=== PATIENT | male | born 1955 | race Caucasian/White ===

== ENCOUNTER 2018-12-19 08:59 | Inpatient (IN) | payer MEDICARE ==
[~2018-12-19] VITALS: Ht 182.9 cm; Wt 130.6 kg
[2018-12-19] VITALS (17 sets, daily range): BP systolic 107–170; BP diastolic 51–97
--- NOTE | ~2018-12-19 | EEG ---
[address] [address] EEG STUDY REPORT Name: CORTEZ EVANS Room: [address] IN M.R.#: [id number] Admission: 12/19/18 Attend Phys: Jay Unger MD Discharge: Date of : 55 Report #: [id number] THIS REPORT FOR: //name// CC: Jus Unger MD DATE OF SERVICE: 12/20/2018 HISTORY: The patient is a 63-year-old male with possible seizure and altered mental status. An EEG is requested for further evaluation. DESCRIPTION: The record consists of low to moderate amplitude 4-5 Hz activity, which is diffuse and bilaterally symmetrical. EMG artifact was noted during the recording. Photic stimulation was not activating. No focal abnormalities or epileptiform discharges are noted. IMPRESSION: This is an abnormal adult record because of [id number]-[id number]-[id number] slowing of the posterior dominant rhythm. This is consistent with diffuse cerebral dysfunction and can be seen if the patient is very drowsy or due to a medication effect. No focal abnormalities or epileptiform discharges were noted. By: [id number] Garrison DO /nt
--- NOTE | 2018-12-19 09:15 | NUR ---
PT TAKEN DIRECTLY TO CT PER DR. BAIRES REQUEST ON EMS CART.
[2018-12-19 09:25] LABS: NUCLEATED RBCS 0 /100WBC
[2018-12-19 09:28] LABS: HEMATOCRIT 45.4 % (42.0-52.0); HEMOGLOBIN 15.4 gm/dL (14.0-18.0); MCH 32.1 pg (26.0-34.0); MCHC 33.9 g/dL (28.0-37.0); MCV 94.6 fL (80.0-100.0); MPV 8.2 fl. (7.2-11.1); PLATELET COUNT* 262 thou/uL (150-400); RDW-CV 13.3 % (10.5-14.5); WBC 17.1 thou/uL (4.0-11.0)
[2018-12-19 09:32] LABS: APTT 28.5 Seconds (25.0-31.3); CALCIUM 9.4 mg/dL (8.5-10.1); CREATININE 1.9 mg/dL (0.6-1.3); INR 1.1; POTASSIUM 4.5 mmol/L (3.5-5.1); PROTIME 11.2 Seconds (9.20-11.50)
[2018-12-19] MEDS ORDERED: HUMALOG100 UNIT/1 SUBQ (09:40)
[2018-12-19] MEDS ORDERED: LANTUS100 UNIT/M SUBQ (09:40)
[2018-12-19 09:47] LABS: ALBUMIN 3.7 g/dL (3.4-5.0); CK-MB MASS 19.1 ng/mL (<0.5-3.6); TOTAL BILIRUBIN 1.5 mg/dL (<0.1-1.0); TOTAL PROTEIN 7.8 g/dL (6.4-8.2); TROPONIN-I LEVEL 0.08 ng/mL (<0.06)
[2018-12-19 09:59] LABS: BE -3.5 mmol/L (-2 to +3); PCO2 38.7 mmHg (35.0-45.0); pH 7.362 (7.340-7.450)
[2018-12-19 10:08] LABS: PO2 329.7 mmHg (75.0-100.0)
[2018-12-19 10:22] LABS: ABSOLUTE EOSINOPHILS 0.2 thou/uL (0.0-0.7); ABSOLUTE LYMPHOCYTES 1.7 thou/uL (0.8-5.3); ABSOLUTE NEUTROPHILS 14.2 thou/uL (1.6-8.1); PLATELET ESTIMATE ADEQUATE
[2018-12-19 10:54] LABS: URINE BILIRUBIN NEGATIVE (Negative); URINE BLOOD 3+ (Negative); URINE CLARITY CLEAR; URINE COLOR YELLOW; URINE GLUCOSE-RANDOM 3+ (Negative); URINE KETONES 1+ (Negative); URINE LEUKOCYTES-REFLEX NEGATIVE (Negative); URINE NITRITE-REFLEX NEGATIVE (Negative); URINE PROTEIN 2+ (Negative); URINE UROBILINOGEN 0.2 E.U./dl (0.2-1.0)
[2018-12-19 11:01] LABS: AMP/METHAMP Negative (Negative); BARBITURATES Negative (Negative); BENZODIAZEPINES POSITIVE (Negative); COCAINE Negative (Negative); METHADONE Negative (Negative); OPIATES Negative (Negative); PCP Negative (Negative); THC Negative (Negative)
[2018-12-19 11:01] LABS: ACETAMINOPHEN < 2 ug/mL (10-30); ALCOHOL < 10 mg/dL (<10); SALICYLATE < 2.8 mg/dL (2.8-20.0)
[2018-12-19 11:06] LABS: BACTERIA-REFLEX None Seen /HPF (None Seen); CASTS None Seen /LPF (None Seen); CRYSTALS None Seen /LPF (None Seen); MUCUS None Seen strn/LPF (None Seen); SQUAMOUS NONE SEEN /LPF (0-3); URINE RBC 0-2 Rare /HPF (0-2); URINE WBC-REFLEX None Seen /HPF (0-5)
--- NOTE | 2018-12-19 11:32 | NUR ---
DR. BAIRES SPOKE W/ PT'S SISTER WHO INQUIRES ABOUT STATUS. SISTER DOES NOT WANT TO VISIT W/ PT BUT IS GOING TO UPDATE PT'S MOTHER.
--- NOTE | 2018-12-19 14:50 | EKG ---
[place] [address] ELECTROCARDIOGRAM REPORT Name: CORTEZ EVANS Room: [address] ADM IN M.R.#: [id number] Admission: 12/19/18 Attend Phys: Jay Unger MD Discharge: Date of : 55 Report #: [id number] THIS REPORT FOR: //name// [facility] ED Test Date: 2018-12-19 Test Time: 10:01:22 Pat Name: CORTEZ EVANS Department: Room: [facility] Gender: M Nut Blanker Operator: Alejandro CASTREJON : 1955 Requested By: Rupert Pittman Order Number: [id number] MD: Tino Carrington Measurements Intervals [place] Rate: 77 P: 43 VT: 195 QRS: -23 QRSD: 96 T: 26 QT: 400 QTc: 453 Interpretive Statements Sinus arrhythmia Borderline left axis deviation No previous ECG available for comparison Electronically Signed On 12-19-2018 14:50:39 CDT by Tino Carrington [email or web address] <ELECTRONICALLY SIGNED> By: Tino Carrington MD, [facility] 12/19/18 1450 1001 00 Tino Carrington MD, FACC /EPI
[2018-12-19] MEDS ORDERED: CENTRUM SILVER1 EAC4 PO (15:02)
[2018-12-19] MEDS ORDERED: LIPITOR 20 MG T20 M1 PO (15:03)
[2018-12-19] MEDS ORDERED: LEVOTHYROXINE100 MCG PO (15:03)
[2018-12-19] MEDS ORDERED: AMLODIPINE BESYL5 M1 PO (15:03)
[2018-12-19] MEDS ORDERED: LISINOPRIL20 MG PO (15:04)
[2018-12-19] MEDS ORDERED: LASIX 20 MG TAB20 MG PO (15:04)
--- NOTE | 2018-12-19 16:06 | 2DMMODE ---
[place] [address] 2 D/M-MODE ECHOCARDIOGRAM Name: CORTEZ EVANS Room: 006[facility] IN [facility]#: [id number] Admission: 12/19/18 Attend Phys: Jay Unger MD Discharge: Date of : 55 Date of Service: 12/19/18 1605 Report #: [id number] THIS REPORT FOR: //name// APPROVED REPORT Study performed: 12/19/2018 14:12:24 EXAM: Comprehensive 2D, Doppler, and color-flow Echocardiogram Patient Location: In-Patient Room #: 0063 Status: routine BSA: 2.47 HR: 79 bpm BP: 131/65 mmHg Rhythm: NSR Other Information Study Quality: Good Indications Congestive Heart Failure 2D Dimensions IVSd: 12.01 (7-11mm) LVOT Diam: 22.99 (18-24mm) LVDd: 48.73 mm PWd: 8.96 (7-11mm) Ascending Ao: 35.60 (22-36mm) LVDs: 25.73 (25-40mm) Aortic Root: 32.23 mm Volumes Left Atrial Volume (Systole) LA ESV Index: 28.20 mL/m2 Aortic Valve AoV Peak Darinel.: 2.07 m/s AO Peak Gr.: 17.07 mmHg LVOT Max P.55 mmHg AO Mean Gr.: 8.96 mmHg LVOT Mean P.37 mmHg LVOT Max V: 1.54 m/s AO V2 VTI: 39.24 cm LVOT Mean V: 0.95 m/s JAYLIN (VTI): 3.62 cm2 LVOT V1 VTI: 34.18 cm Mitral Valve E/A Ratio: 0.75 MV Decel. Time: 277.45 ms MV E Max Darinel.: 0.85 m/[place] [address] 2 D/M-MODE ECHOCARDIOGRAM Name: CORTEZ EVANS Room: [address] IN .R.#: [id number] Admission: 12/19/18 Attend Phys: Jay Unger MD Discharge: Date of : 55 Date of Service: 12/19/18 1605 Report #: [id number] PHT: 80.46 ms MVA (PHT): 2.73 cm2 TDI E/Lateral E': 6.54 E/Medial E': 5.31 Medial E' Darinel.: 0.16 m/s Lateral E' Darinel.: 0.13 m/s Pulmonary Valve PV Peak Darinel.: 1.40 m/s PV Peak Gr.: 7.83 mmHg Left Ventricle The left ventricle is normal size. There is normal LV segmental wall motion. There is normal left ventricular wall thickness. Left ventricular systolic function is normal. LVEF is 65-70%. Grade I - abnormal relaxation pattern. Right Ventricle The right ventricle is normal size. The right ventricular systolic function is normal. Atria The left atrium size is normal. The right atrium size is normal. Aortic Valve The aortic valve is normal in structure. No aortic regurgitation is present. There is no aortic valvular stenosis. Mitral Valve The mitral valve is normal in structure. Trace mitral regurgitation. No evidence of mitral valve stenosis. Tricuspid Valve The tricuspid valve is normal in structure. Trace tricuspid regurgitation. Pulmonic Valve The pulmonary valve is normal in structure. There is no pulmonic valvular regurgitation. Great Vessels The aortic root is normal in size. IVC is normal in size and collapses >50% with inspiration[place] [address] 2 D/M-MODE ECHOCARDIOGRAM Name: CORTEZ EVANS Room: [address] IN [facility]#: [id number] Admission: 12/19/18 Attend Phys: Jay Unger MD Discharge: Date of : 55 Date of Service: 12/19/18 1605 Report #: [id number] There is no pericardial effusion. <Conclusion> The left ventricle is normal size. There is normal left ventricular wall thickness. Left ventricular systolic function is normal. LVEF is 65-70%. Grade I - abnormal relaxation pattern. Trace mitral regurgitation. Trace tricuspid regurgitation. IVC is normal in size and collapses >50% with inspiration. <ELECTRONICALLY SIGNED> By: Tino Carrington MD, FACC 12/19/18 1605 04 04 Tino Carrington MD, FAC /INF
--- NOTE | 2018-12-19 18:03 | NUR ---
PATIENT REMAINS ON VENTILATOR AND IN RESTRAINTS. MAKES SOME PURPOSEFUL MOVEMENT. SPOKE WITH [facility] NURSE NAMED LIVIA THIS AFTERNOON AND SHE STATED THAT PATIENT HAS BEEN UNCHARACTERISTICALLY NICE TO PEOPLE AROUND THE [facility] THIS LAST WEEK AND HAS BEEN SNAPPY WITH HIS MOTHER ALL OF A SUDDEN. REFUSED FOR MOM TO CHECK ON HIM LAST NIGHT WHICH SHE NORMALLY DOES. SUGAR WAS CHECKED BY HIM LAST NIGHT AT 1800 AND IT WAS 66, PATIENT HAD GIVEN HIMSELF INSULIN (UNKNOWN AMOUNT) AT 1600 FOR DINNER. PATIENT HAS MADE STATEMENTS IN THE PAST TO LIVIA THAT HE JUST WANTS TO AND DOESNT WANT TO LIVE ANYMORE. POSSIBLE SI ATTEMPT. ONCE PATIENT IS EXTUABTED PER DR VALERA HE WILL NEED A SITTER AND SI PRECAUTIONS. SUGARS ARE HIGH SINCE HOSPITAL STAY. INSULIN GTT STARTED. MEDICAL HISTORY FAXED FROM [facility] AND DR RIOS IS FAXING OVER SOME HISTORY FROM [facility] ON PATIENT HISTORY ALSO. BED IN LOWEST POSTION, MANAGER FLEET IN PLACE. HIGH FALL PRECAUTIONS IN PLACE.
[2018-12-20] VITALS (23 sets, daily range): BP systolic 134–186; BP diastolic 42–74
--- NOTE | 2018-12-20 02:05 | NUR ---
FSBS X2 <60, INSULIN GTT STOPPED, SERUM GLUCOSE STAT ORDERED, SERUM GLUCOSE FROM LAB RESULTED AT 26, ONE AMP-D50 GIVEN IVP, WILL RECHECK FSBS 15MIN POST AMP D50 IVP ADMINISTRATION.
[2018-12-20 05:46] LABS: BE -1.2 mmol/L (-2 to +3); PCO2 35.4 mmHg (35.0-45.0); pH 7.422 (7.340-7.450)
[2018-12-20 05:49] LABS: PO2 163.5 mmHg (75.0-100.0)
[2018-12-20 05:57] LABS: ABSOLUTE BASOPHILS 0.1 thou/uL (0.0-0.2); ABSOLUTE LYMPHOCYTES 1.5 thou/uL (0.8-5.3); ABSOLUTE MONOCYTES 1.8 thou/uL (0.0-1.2); ABSOLUTE NEUTROPHILS 11.1 thou/uL (1.6-8.1); BASOPHILS 0.5 %; EOSINOPHILS 0.3 %; HEMATOCRIT 36.7 % (42.0-52.0); LYMPHOCYTES 10.3 %; MCH 31.9 pg (26.0-34.0); MCHC 33.9 g/dL (28.0-37.0); MCV 94.1 fL (80.0-100.0); MONOCYTES 12.1 %; NUCLEATED RBCS 0 /100WBC; PLATELET COUNT* 235 thou/uL (150-400); POLYS 76.8 %; RDW-CV 13.6 % (10.5-14.5); WBC 14.4 thou/uL (4.0-11.0)
[2018-12-20 06:02] LABS: HEMOGLOBIN 12.4 gm/dL (14.0-18.0)
[2018-12-20 06:12] LABS: ALBUMIN 2.7 g/dL (3.4-5.0); CALCIUM 8.2 mg/dL (8.5-10.1); MAGNESIUM 1.8 mg/dL (1.8-2.4); POTASSIUM 3.8 mmol/L (3.5-5.1); TOTAL BILIRUBIN 0.8 mg/dL (<0.1-1.0)
--- NOTE | 2018-12-20 08:26 | CON ---
[address] [address] CONSULTATION Name: NATHANCORTEZ CAIN Room: [address] IN M.R.#: [id number] Admission: 12/19/18 Attend Phys: Jay Unger MD Discharge: Date of : 55 Report #: [id number] THIS REPORT FOR: //name// CC: Jus Unger DATE OF SERVICE: 12/19/2018 REQUESTING PHYSICIAN: Dr. Unger. REASON FOR CONSULTATION: Respiratory failure, on ventilator. DISCUSSION: The patient is a 63-year-old man who was brought to the Emergency Department earlier this morning. He was found down and unresponsive. According to the ED notes, he was at some type of a nursing home or institution. Unknown how long he had been down. Had apparently vomited and loss of bowel and bladder. Reportedly, yesterday evening, blood sugars were down to 56. It is not clear how long he was down, but preliminary information suggests he had not been seen all night. We have no outside records on him at this time. He has had no prior hospital stays here at [place]. He was seen in the Emergency Department, noted to be unresponsive. He had been intubated in the field. He did have a central line placed in the Emergency Department. He had chest x-ray as well as imaging done of his head with no acute abnormalities noted there. He was transferred over to the Intensive Care Unit on the ventilator, we were asked to see him. For some additional sedation, propofol was started. At this time, other than the fact apparently, he is a known type 1 diabetic, we have no other history on him. We have no current list of active medications. Also unable to obtain any family history, social history or perform review of systems. PHYSICAL EXAMINATION: GENERAL APPEARANCE: A man who looks stated age, if not older. Intubated, has an orogastric tube in place. Does have low-dose propofol going at this time. Some withdrawing to noxious stimuli. Otherwise, he is not responsive. HEENT: Head is normocephalic. Sclerae nonicteric. Mucous membranes a little dry. NECK: Without adenopathy. Neck veins are a little full. No supraclavicular adenopathy. HEART: Regular. He is mildly tachycardic. Currently is in the mid 90s. No S3 is heard. LUNGS: Sounds are a little coarse. No wheezing is heard. No subcutaneous emphysema and excursion is equal. ABDOMEN: Protuberant. Does appear there is a very [place] [address] CONSULTATION Name: CORTEZ EVANS Room: [address] IN [facility].#: [id number] Admission: 12/19/18 Attend Phys: Jay Unger MD Discharge: Date of : 55 Report #: [id number] definite hepatosplenomegaly is appreciated. [place] catheter is in place. EXTREMITIES: He has no clubbing. Radial pulses are present, but diminished. Lower extremities, he has SCDs in place. SKIN: Warm and dry. NEUROLOGIC: He is currently not on any pressors. LABORATORY AND X-RAY FINDINGS: Chest x-ray shows endotracheal tube in position. It is just above the km. He has some infiltrate seen in the left base. A CT head done this morning was negative for acute findings. He does have a small sphenoid sinus air fluid level. Arterial blood gases done, pH was 7.36, pCO2 of 39, pO2 of 330, bicarbonate of 22 with saturation 98%. That was on 100% oxygen. He has since been turned down to 40%. White blood cell count 17,100, hemoglobin 15.4, hematocrit 45.4, platelets are normal. On his chemistry profile, BUN is 31, creatinine of 1.9, serum bicarbonate was 22, AST 92, total bilirubin 1.5, ALT 44. ProBNP 807. Lactic acid was 2.1, dropped to 1.7 on followup. Albumin 3.7. Blood sugar was greater than 300 when checked this morning. Total CPK was just over 3500. Drug screen was positive for benzodiazepines. MRSA screen is pending. Currently at this time, he is on propofol for sedation. Has p.r.n. fentanyl ordered as well. He had Protonix, antibiotics in the form of vancomycin, levofloxacin, metronidazole and cefepime. He did receive a dose of vancomycin in the Emergency Department. He is also on nebulizer treatments, DVT prophylaxis with Lovenox and aspirin. IMPRESSION: 1. Acute respiratory failure. Intubated to protect airway due to alterations in the level of consciousness. 2. Left lower lobe infiltrate. Some of this could be atelectasis. May also have aspirated. Currently, did vomit and had vomitus present on his face. Currently, is oxygenating well. 3. Diabetes mellitus, questionable control. It is also not clear how compliant he is. 4. Elevation in creatinine. It is not clear what his baseline is. 5. Mild metabolic acidosis. 6. Mild elevation of liver function tests. RECOMMENDATIONS: 1. Check sputum for Gram stain and C and S. 2. Continue antibiotics deescalate as culture results become available. 3. Minimize sedation as much as possible in order to assess underlying neurological status. [address] [place] [address] CONSULTATION Name: CORTEZ EVANS Room: [address] ADM IN M.R.#: [id number] Admission: 12/19/18 Attend Phys: Jay Unger MD Discharge: Date of : 55 Report #: [id number] 4. Follow up lab in the morning. 5. We will need additional records on him. <ELECTRONICALLY SIGNED> By: Linn Cabrera MD 12/20/18 0826 1425 [id number] Cabrera MD /nt
--- NOTE | 2018-12-20 15:44 | NUR ---
WAS ASKED TO CLARIFY PT'S DPOA/HOME SITUATION/ ONLY NUMBER IN CHART WAS FOR HIS SISTER ABHINAV STRONG [phone]. SPOKE WITH HER. SHE STATED PT LIVES IN IN[facility] L[facility]ING AT [facility] IN [place]. CONFIRMED THIS WITH MARCUS/NURSE THERE [phone]. SHE STATED THEY DID NOT HAVE A DPOA ON FILE AND THAT PT'S MOTHER/IRAIDA ALSO LIVES IN INDP LIVING THERE AND SHE AND PT CHECK ON EACH OTHER AND ARE 'CO-DEPENDENT'. PT IS DIABETIC AND PER MARCUS, CHECKS HIS BS FREQUENTLY AND KEEPS A LOG ON HIS COMPUTER. PT HAS LIVED THERE ABOUT A YEAR BUT SINCE SEP, HAS HAD WEEKLY OR BIWEEKLY CALLS TO EMS FOR BS ISSUES. SHE STATED PT DROPS TO '20S' AND THAT SHE FOUND HIM WITH [facility] YESTERDAY AM AND CALLED EMS. PER MARCUS, PT HAS ONLY BEEN IN INDP LIVING IN THEIR FACILITY, NO ASSISTED OR SNF. PER ABHINAV, PT HAS 2 DTRS AND MAN[facility] THAT SHE THINKS ARE DPOA. WOULD ONLY GIVE NUMBER OF MAN[facility]/MELISSA GAMING [phone]. CALLED AND LEFT VMAIL. PER RITARN, MELISSA CALLED BACK AND STATED HE WAS DPOA AND WOULD FAX COPY TO ICU. CM TO FOLLOW
[2018-12-20 17:45] LABS: TROPONIN-I LEVEL <0.06 ng/mL (<0.06)
--- NOTE | 2018-12-20 18:39 | NUR ---
PATIENT EXTUABTED THIS MORNING, TOLERATED WELL. ON ROOM AIR. SITTER IN PLACE. PSYCH EVALUATION TOMORROW FOR POSSIBLE SUICIDAL ATTEMPT AND ABILITY FOR PATIENT TO MAKE OWN DECISIONS. PATIENT REFUSES TO TAKE SYNTHROID PILL AND REFUSES TO EAT FOOD THIS EVENING. SWALLOW INTACT. NO PAIN, NAUSEA OR SHORTNESS OF AIR REPROTED. REFUSED BATH ALSO. BED IN LOWEST POSITON, CALL LIGHT IN REACH, GASKET MAKER IN PLACE.
[2018-12-21] VITALS (7 sets, daily range): BP systolic 134–169; BP diastolic 50–75
[2018-12-21 05:14] LABS: ABSOLUTE BASOPHILS 0.1 thou/uL (0.0-0.2); ABSOLUTE EOSINOPHILS 0.2 thou/uL (0.0-0.7); ABSOLUTE LYMPHOCYTES 1.6 thou/uL (0.8-5.3); ABSOLUTE MONOCYTES 0.9 thou/uL (0.0-1.2); ABSOLUTE NEUTROPHILS 6.5 thou/uL (1.6-8.1); BASOPHILS 0.7 %; HEMATOCRIT 35.2 % (42.0-52.0); LYMPHOCYTES 17.1 %; MCH 31.9 pg (26.0-34.0); MCV 93.8 fL (80.0-100.0); MONOCYTES 9.7 %; MPV 8.4 fl. (7.2-11.1); NUCLEATED RBCS 0 /100WBC; PLATELET COUNT* 235 thou/uL (150-400); POLYS 70.5 %; RBC 3.75 mil/uL (4.50-6.00); RDW-CV 13.5 % (10.5-14.5); WBC 9.2 thou/uL (4.0-11.0)
[2018-12-21 05:19] LABS: CALCIUM 8.1 mg/dL (8.5-10.1); CREATININE 1.7 mg/dL (0.6-1.3); POTASSIUM 3.5 mmol/L (3.5-5.1)
--- NOTE | 2018-12-21 16:10 | NUR ---
ASSESSMENT COMPLETE. PT ALERT AND ORIENTED TO SELF. PT HAD TELE PSYCH, SEE RESULTS IN CHART. CASE MANAGEMENT CONSULTED TO FIND PSYCH PLACEMENT. ACCUCHECK ACHS. PT IS ONE TO ONE. PULMONARY CHANGED ABX TO PO AND SIGNED OFF. PT UP IN CHAIR MOST OF THE DAY. VSS. CENTRAL LINE AND LEACH DC'D. SEE ASSESSMENT AND VITALS FOR OTHER DETAILS. CALL LIGHT WITHIN REACH, WILL CONTINUE PLAN OF CARE
--- NOTE | 2018-12-22 05:46 | NUR ---
Oriented x 2 and drowsy. He does answer questions but slowly. He has had a 1:1 sitter at bedside. He denies pain or nausea. He didn't void and said he couldn't so he was bladderscanned and it was greater than 900 mls. I did go in with a straight cath but he did decide he could stand up and void. He did void 400 mls in urinal and some that didn't make it in the urinal. It was assist x 2 to stand at bedside. He has slept well.
[2018-12-22 07:02] VITALS: BP 167/81
[2018-12-22 15:47] VITALS: BP 131/65
--- NOTE | 2018-12-22 16:03 | NUR ---
ASSESSMENT COMPLETE. PT ALERT AND ORIENTED TO SELF. PT HAD ONE TO ONE THROUGHOUT THE DAY. PT DENIES PAIN AND N/V. TOLERATING MEALS. ACCU CHECK ACHS. PT IS ON ROOM AIR, VSS. RT TREATMENTS DURING THE DAY. PT UP TO BATHROOM WITH ONE ASSIST. CM TO FIND PLACEMENT. SEE ASSESSMENT AND VITALS FOR OTHER DETAILS. CALL LIGHT WITHIN REACH, WILL CONTINUE PLAN OF CARE
--- NOTE | 2018-12-22 19:13 | NUR ---
INPATIENT FACILITIES CONTACTED: 1) [facility]-INFORMATION FAXED INFO [phone] 2) [facility]-FAXED INFO [phone] 3) [facility]-@ STAFF CAPACITY 4) [facility]-FAXED INFO [phone] 5) [facility]-FULL 6) [facility]-FAXED INFO [phone] 7) [facility]-AT CAPACITY, EXPECTING 2 MALE DISCHARGES TOMORROW 8) [facility]-FULL 9) [facility]- FAXED INFO TO [phone] 10) [facility]-FAXED INFO TO [phone] 11) [facility]-FAXED INFO TO [phone] INSTRUCTED FACILITIES TO CALL DIESEL ENGINE OPERATOR IF BED AVAILABILITY TONIGHT. ISAAC RN UPDATED.
[2018-12-22 20:00] VITALS: BP 173/80
--- NOTE | 2018-12-23 04:12 | NUR ---
Regarding pysch placement. 12/22/18 @ 1999 Kaylee RODRIGUEZ charge nurse from [facility] in [place],stated that she was forwarding info sent by nursing blueprinting and photocopy supervisor Bibi to the director operations at [facility] and the psychiatrist and possibly admit today. Kaylee returned call at 2140 and stated she spoke with the psychiatrist and they are going to review med records this am and will call and confirm today. At approximately 2200, Jennifer from [facility] called and stated they couldn't take the patient last night (12-22-18) but they will review his possible admission on a day to day basis. At 2248 Iqra RODRIGUEZ charge nurse from [facility] in [place], [place] called to say she had recieved the papers sent by blueprinting and photocopy supervisor Bibi. Iqra RODRIGUEZ called back at 2336 stated she had spoke with the doctor and they said they would need 2 letters from 2 different doctors stating that patient couldn't make his own decisions and that his DPOA could make health decisions; their fax number [phone].
--- NOTE | 2018-12-23 05:29 | NUR ---
Oriented x 2-3 and cooperative. He has been sleeping most of the shift. He is up with stand by assist walking into the bathroom or using the urinal. Dressing to rt jugular from central line was removed last evening. He did express his discomfort from that slightly negatively but then was apologetic.He takes his oral meds very well.
[2018-12-23 11:18] VITALS: BP 173/80
[2018-12-23] MEDS ORDERED: LEVAQUIN 500 M500 M2 PO ×2 (11:22→11:42)
[2018-12-23] MEDS ORDERED: ASPIR-LOW81 MG PO (11:42)
[2018-12-23] MEDS ORDERED: HUMALOG100 UNIT/1 SUBQ (11:42)
--- NOTE | 2018-12-23 11:46 | NUR ---
[facility] IN [place], [place]CALLED AND SAID THEY CAN ACCEPT PT.TO AN INPT.BED TODAY. DR.STEVEN RODRIGUEZ IS ACCEPITNG NURSING REPORT TO BE CALLED TO [phone]. TOLD HER WE WOULD GET HIM ON HIS WAY SHORTLY. CHART IS COPIED TO GO WITH PT. JENNIFER MONCADA TO CALL REPORT. MICHAEL CALLED [facility] TO DISCUSS. HE SAID HE HAS SPOKEN WITH [facility] TODAY. HE INQUIRED HOW WE WOULD SEND PT. TOLD HIM HE WOULD NEED TO GO BY AMBULANCE. HE WAS AGREEABLE TO PT GOING THERE. ANTWAN CALLED REPORT AND NURSING TOLD HER THEY DID NOT WANT PT.UNTIL 3PM. CM WILL INFORM PT. THAT HE IS LEAVING [place] 2:30 CLOSER TO THAT TIME.
--- NOTE | 2018-12-23 13:47 | NUR ---
INFORMED PT.HE WAS GOING TO INPT.PSYCH IN [place], [place]. HE SAID HE DID NOT WANT TO GO. EXPLAINED THAT IS WHAT THE PSYCHIATRIST RECOMMENDED AND THAT PT.DID NOT HAVE A SAY IN DECISION. TOLD HIM I CONTACTED HIS BROTHER IN [place], OF HIS DPOAS. FARHAT EXPLAINED IF HE DID NOT GO WILLINGLY, WE WOULD HAVE TO HAVE POLICE TAKE HIM. CHARGE NURSE SPOKE WITH PT.AFTER CM AND HE WAS AGREEABLE. CALLED FIRE FOR [facility] TRANSP[facility]. DISPATCHER SAID TRIP WILL NEED TO BE OK'D, SINCE IT IS CONSIDERED AN OUT OF TOWN TRIP.
[2018-12-23 15:35] VITALS: BP 173/80
--- NOTE | 2018-12-23 15:35 | NUR ---
PT CHART COPIED. AMBULANCE TRANSPORTING PT [facility]. IV REMOVED. FALL RISK PRECAUTIONS IN PLACE. HOURLY ROUNDING COMPLETED.
== END 2018-12-23 15:37 | DRG 871 ==
LOC: EDBD 08:59 → M.ERS 08:59 → M.TBA-ER 11:15 → M.ICU 11:15 → M.3W 12-21 06:25
PROVIDERS: Family Medicine; ADMIT Family Medicine
PROC: 0BH17EZ Insertion of Endotracheal Airway into Trachea, Via Natural or Artificial Opening (ICD-10-PCS; principal; 2018-12-19)
PROC: 5A1935Z Respiratory Ventilation, Less than 24 Consecutive Hours (ICD-10-PCS; principal; 2018-12-19)
PROC: 05HY33Z Insertion of Infusion Device into Upper Vein, Percutaneous Approach (ICD-10-PCS; principal; 2018-12-19)
DX: A41.9 Sepsis, unspecified organism (principal); G93.41 Metabolic encephalopathy; J96.01 Acute respiratory failure with hypoxia; J69.0 Pneumonitis due to inhalation of food and vomit; M62.82 Rhabdomyolysis; T38.3X2A Poisoning by insulin and oral hypoglycemic [antidiabetic] drugs, intentional self-harm, initial encounter; R56.9 Unspecified convulsions; R65.20 Severe sepsis without septic shock; E10.649 Type 1 diabetes mellitus with hypoglycemia without coma; F31.9 Bipolar disorder, unspecified; E10.22 Type 1 diabetes mellitus with diabetic chronic kidney disease; N18.3 Chronic kidney disease, stage 3 (moderate); Y92.89 Other specified places as the place of occurrence of the external cause